=== PATIENT | male | born 1965 | race Caucasian/White ===

== ENCOUNTER 2019-09-02 07:50 | Emergency (ER) | payer OTHER, SELFPAY ==
[2019-09-02] VITALS (19 sets, daily range): BP systolic 133–188; BP diastolic 60–125; PULSE 62–101; RESP 13–27; TEMP 36.3–36.6; O2SAT 65–100
--- NOTE | ~2019-09-02 | XR_ITS ---
EXAMINATION: XR chest 1V portable DATE: 09/02/2019 08:42 INDICATION: Mid chest pain. TECHNIQUE: A single frontal view of the chest was obtained. COMPARISON: None. FINDINGS: The chest demonstrates clear lungs without pneumonia, pleural effusion, or pneumothorax. Th e heart size is normal. Electronic devices overlie the chest bilaterally with wires coursing to the n sophie. IMPRESSION: 1. No acute cardiopulmonary disease. Reviewed, dictated and finalized at location A.
--- NOTE | ~2019-09-02 | US_ITS ---
EXAMINATION: US right upper quadrant DATE: 09/02/2019 09:20 INDICATION: Right upper quadrant abdominal pain. TECHNIQUE: Multiple grayscale and Doppler ultrasound images of the abdomen were obtained. COMPARISON: None FINDINGS: The visualized portions of the head of the pancreas are normal. The liver is normal without focal lesion. There is normal flow in main portal vein. The gallbladder is normal in size and contai ns sludge. No gallstones or gallbladder wall thickening. There was no sonographic Mcgrath sign. The co mmon duct is normal and measures 5 mm. IMPRESSION: 1. Gallbladder sludge. No evidence of acute cholecystitis. Reviewed, dictated and finalized at location A.
--- NOTE | 2019-09-02 07:57 | ED.CHESTPAIN ---
HPI - Chest Pain General Chief Complaint: Chest Pain Stated Complaint: REAL INTENSE CP Time Seen by Provider: 09/02/19 07:55 History of Present Illness HPI narrative: Severe central chest pain for the past couple of hours. Associated with SOB and nausea. He hints at the fact that he has had this pain many times before, but he will no say it directly. 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 Related Data Home Medications Medication Instructions Recorded Confirmed clonazepam [Klonopin] 2 mg PO BID 03/01/19 03/01/19 divalproex 1,500 mg PO HS 03/01/19 03/01/19 divalproex [Depakote] 500 mg PO DAILY 03/01/19 03/01/19 lithium carbonate 03/01/19 03/01/19 Allergies Allergy/AdvReac Type Severity Reaction Status Date / Time No Known Allergies Allergy Verified 09/02/19 08:02 Review of Systems Review of Systems: All systems reviewed & are unremarkable except as noted in HPI and below Constitutional: Constitutional: Reports weakness Cardiovascular: Cardiovascular: Reports chest pain Respiratory: Respiratory: Reports dyspnea Gastrointestinal: Gastrointestinal: Reports nausea Neurologic: Reports dizziness and Reports weakness Psychiatric: Psychiatric: Reports anxiety and Reports depression Endocrine: Endocrine: Denies polydipsia and Denies polyuria PMFSH Past Medical History Medical History Anxiety Depression Surgical History Surgical History S/P deep brain stimulator placement Social History Social History Gender identity (if verbalized by the patient): Male Exam Const: General: healthy appearing and no acute distress Nutritional Appearance: well nourished Orientation/consciousness: patient oriented x3 HENMT: Head: normal to inspection Resp: Effort & Inspection: normal respiratory effort Auscultation: clear to auscultation bilaterally Cardio: Rate: regular rate Rhythm: regular rhythm GI: Inspection: non-distended Other: mild epigastric tenderness Skin: General skin exam: normal color Neuro: General: patient oriented x3, moves all extremities and CN's II-XI intact bilaterally Speech: Abnormal speech present slurred and stuttering Other: Mild tremor Extrem: General: no edema Psych: Affect: Anxious affect present Course Vital Signs Vital signs: Vital Signs Temperature 36.6 C 09/02/19 07:54 Pulse Rate 69 09/02/19 07:54 Respiratory Rate 18 09/02/19 07:54 Blood Pressure 185/83 H 09/02/19 07:54 Pulse Oximetry 99 09/02/19 07:54 Temperature 36.3 C L 09/02/19 12:58 Pulse Rate 83 09/02/19 12:58 Respiratory Rate 16 09/02/19 12:58 Blood Pressure 175/61 H 09/02/19 12:58 Pulse Oximetry 100 09/02/19 12:58 MDM - Chest Pain MDM Narrative Medical decision making narrative: Pain is not typical for cardiac pain. In addition to this on multiple occasions he has been noted to be sleeping, but when questioned about ongoing pain he states that its a 10. This amkes me believe that there is either a psychological component or he has some secondary gain. Differential Diagnosis Differential diagnosis: Likely atypical chest pain and other (biliary colic) Medical Records Data Attestation: I reviewed the patient's medical records. Lab Data Attestation: I reviewed the patient's lab results. Result diagrams: 09/02/19 08:17 09/02/19 08:17 Labs: Lab Results 09/02/19 09/02/19 09/02/19 Range/Units 08:17 08:17 08:17 WBC 11.7 H (4.5-10.0) K/mm3 RBC 4.37 L (4.6-6.20) M/mm3 Hgb 13.6 L (14.0-18.0) g/dL Hct 41.4 L (42.0-52.0) % MCV 94.7 (80-100) fl MCH 31.1 (26-34) pg MCHC 32.9 (32-36) g/dl RDW 11.4 L (11.5-14.5) % Plt Count 229 (150-37
--- NOTE | 2019-09-02 08:03 | ECG_ITS ---
Measurements Intervals Kemp Rate: 72 P: 86 WY: 161 QRS: 202 QRSD: 82 T: 189 QT: 407 QTc: 447 Interpretive Statements SINUS RHYTHM WITH SINUS ARRHYTHMIA ATRIAL PREMATURE COMPLEX EARLY PRECORDIAL R/S TRANSITION BORDERLINE ST-T WAVE ABNORMALITY- ANTEROLATERAL LEADS BASELINE ARTIFACT- I, II, III, AVR, AVL, AVF, V1-V6 BORDERLINE ECG Electronically Signed On 09-02-2019 15:00:45 CDT by Rell Mercado D.O.
[2019-09-02 08:25] LABS: Basophils Absolute Auto 0.1 K/mm3 (0.0-0.1); Basophils Percent Auto 0.4 % (0.2-1.2); Eosinophils Absolute Auto 0.2 K/mm3 (0-0.3); Eosinophils Percent Auto 1.9 % (0-4.4); Hematocrit 41.4 % (42.0-52.0); Hemoglobin 13.6 g/dL (14.0-18.0); Immature Granulocyte Absolute 0.03 K/mm3 (0.00-0.031); Immature Granulocyte Percent A 0.3 % (0-0.5); Lymphocytes Absolute Auto 2.93 K/mm3 (0.9-3.2); Mean Corpuscular HGB Conc 32.9 g/dl (32-36); Mean Corpuscular Hemoglobin 31.1 pg (26-34); Mean Corpuscular Volume 94.7 fl (80-100); Monocytes Absolute Auto 1.2 K/mm3 (0.1-0.6); Monocytes Percent Auto 9.9 % (2.6-8.5); Neutrophils Absolute Auto 7.3 K/mm3 (1.3-6.7); Neutrophils Percent Auto 62.5 % (45.5-73.1); Platelet Count Result 229 k/mm3 (150-375); Red Blood Count 4.37 M/mm3 (4.6-6.20); Red Cell Distribution Width 11.4 % (11.5-14.5); White Blood Count 11.7 K/mm3 (4.5-10.0)
[2019-09-02 08:34] LABS: Alanine Aminotransferase 31 U/L (4-50); Albumin Level 4.5 g/dL (3.5-5.1); Alkaline Phosphatase 59 U/L (38-126); Aspartate Amino Transferase 52 U/L (17-59); Bilirubin,Total 0.4 mg/dL (0.2-1.3); Blood Urea Nitrogen 25 mg/dL (9-20); Calcium 9.4 mg/dL (8.4-10.2); Carbon Dioxide 30 mmol/L (22-30); Chloride 105 mmol/L (98-107); Estimated CRCL calculation 85 ml/min; Estimated Glomerular Filt Rate > 60; Glucose 129 mg/dL (75-110); Lipase 126 U/L (23-300); Potassium 4.1 mmol/L (3.4-5.0); Sodium 140 mmol/L (137-145)
[2019-09-02 08:46] LABS: Troponin I < 0.012 ng/mL (0.000-0.034)
[2019-09-02 08:53] LABS: Prothrombin Time 12.6 Seconds (11.1-14.7)
[2019-09-02 09:01] LABS: Partial Thromboplastin Time 23.6 SECONDS (22.3-36.8)
--- NOTE | 2019-09-02 11:10 | PC.NURSE ---
Report to GEOFF Day, to continue care.
[2019-09-02 11:48] LABS: Troponin I < 0.012 ng/mL (0.000-0.034)
[2019-09-02] MEDS: BELLADONNA ALK/PHENOB ELIX 10 ML, MAG HYDROX/ALUMINUM HYD/SIMETH 30 ML, LIDOCAINE HCL 2... PO (12:56)
--- NOTE | 2019-09-02 13:14 | PC.NURSE ---
Pt notes gastric relief after drinking GI coctail
== END 2019-09-02 13:37 | disposition home or self-care (01) ==
PROVIDERS: Emergency Provider Emergency Medicine; PCP Family Medicine
DX: R07.89 Other chest pain (principal); F41.9 Anxiety disorder, unspecified; F32.9 Major depressive disorder, single episode, unspecified; R93.2 Abnormal findings on diagnostic imaging of liver and biliary tract; I49.1 Atrial premature depolarization; R94.31 Abnormal electrocardiogram [ECG] [EKG]
CPT/HCPCS: 36415; 71045; 76705; 80053; 83690; 84484; 85025; 85610; 85730; 93005; 99284; A9270

== ENCOUNTER 2019-09-13 06:07 | Emergency (ER) | payer OTHER, SELFPAY ==
[2019-09-13] VITALS (12 sets, daily range): BP systolic 97–164; BP diastolic 58–105; PULSE 77; RESP 18; TEMP 36.6; O2SAT 92–100
--- NOTE | ~2019-09-13 | XR_ITS ---
EXAMINATION: XR chest 1V portable DATE: 09/13/2019 07:54 INDICATION: Cough. COVID-19 exposure. TECHNIQUE: A single frontal view of the chest was obtained. COMPARISON: Chest single view 09/02/2019 FINDINGS: The chest demonstrates clear lungs without pneumonia, pleural effusion, or pneumothorax. Th e heart size is normal. Electronic devices overlie the chest bilaterally with wires coursing to the n sophie. IMPRESSION: 1. No acute cardiopulmonary disease. Reviewed, dictated and finalized at location A.
--- NOTE | 2019-09-13 06:15 | PC.NURSE ---
While triaging patient, he stated Can't you just swab me and let me go? referring to Covid testing. Explained to patient that swab and go testing is done at clinics when permitted and that because he presented to the emergency room he must be evaluated by a physician in order to have orders placed. Patient verbalized understanding.
--- NOTE | 2019-09-13 07:11 | ED.FEVER ---
HPI - Fever General Chief Complaint: Fever Stated Complaint: hot sweats, GUILLAUME, cough Time Seen by Provider: 09/13/19 07:02 History of Present Illness HPI Narrative: Patient presents from home with 3 days of elevated temperature and fever last night. His voice is very muffled and his sentence structure is difficult to understand, but last night he said his temperature was over 100. He has muscle aches throughout his body, epigastric pain, constipation, and a cough. He has a history of brain stimulators, with bilateral upper chest implants. He is on multiple psychiatric drugs. He denies smoking drinking and drugs. MD elicited complaint: fever Onset (ago): day(s) Exacerbating factors: nothing Relieving factors: nothing Associated symptoms: myalgias, cough and shortness of breath Treatments prior to arrival fever: none Related Data Home Medications Medication Instructions Recorded Confirmed clonazepam [Klonopin] 2 mg PO BID 03/01/19 03/01/19 divalproex 1,500 mg PO HS 03/01/19 03/01/19 divalproex [Depakote] 500 mg PO DAILY 03/01/19 03/01/19 lithium carbonate 03/01/19 03/01/19 Allergies Allergy/AdvReac Type Severity Reaction Status Date / Time No Known Allergies Allergy Verified 09/02/19 08:02 Review of Systems Review of Systems: Narrative: CONSTITUTIONAL: He has had fever, but not chills, or sweats. EYES: Denies visual changes, redness, or discharge. ENT: Denies rhinorrhea, congestion, sore throat, or otalgia. CARDIOVASCULAR: Denies chest pain, palpitations, or edema. RESPIRATORY: He has cough and dyspnea. GASTROINTESTINAL: He has abdominal pain, but not nausea, vomiting, or diarrhea. GENITOURINARY: Denies dysuria or hematuria. SKIN: Denies rash or itching. MUSCULOSKELETAL: He has myalgia. NEUROLOGIC: Denies headache, numbness, or weakness. PSYCHIATRIC: Denies anxiety or depression. All systems reviewed & are unremarkable except as noted in HPI and below PMFSH Past Medical History Medical History Anxiety Depression Surgical History Surgical History S/P deep brain stimulator placement Social History Social History (Updated 09/13/19 @ 07:15 by Myriam Baltazar MD) Smoking status: Never smoker Alcohol intake: never Substance use: never Gender identity (if verbalized by the patient): Male Exam Narrative: Exam Narrative: GENERAL: Well-appearing, well-nourished, and in no acute distress. HEAD: Normocephalic, atraumatic. He has bilateral circular scars on the top of his head. EYES: PERRLA and EOMI. ENT: Nares clear, no rhinorrhea or epistaxis. Mucous membranes moist. NECK: Supple. CHEST: Clear to auscultation. No respiratory distress. Upper chest test has 2 stimulators. HEART: Regular rate and rhythm. No murmur heard. Normal peripheral pulses. ABDOMEN: Soft, nontender, nondistended, normal active bowel sounds. EXTREMITIES: Normal range of motion. No edema. SKIN: Warm, dry, no rash. NEURO: No focal deficits. Alert and oriented x3. PSYCH: Flat affect. Course Reevaluation(s) Reevaluation #1: Went in to tell the patient that all of his test came back normal and that he could be discharged home. He said he was on the phone with his primary care physician trying to get a COVID test elsewhere. Date: 09/13/19 Time: 10:04 Vital Signs Vital signs: Vital Signs Temperature 97.9 F 09/13/19 06:12 Pulse Rate 77 09/13/19 06:12 Respiratory Rate 18 09/13/19 06:12 Blood Pressure 164/78 H 09/13/19 06:12 Pulse Oximetry 100 09/13/19 06:12 Temperature 97.9 F 09/13/19 06:12 Pulse Rate 77 09/13/19 06:12 Respiratory Rate 18 09/13/19 06:12 Blood Pressure 129/73 09/13/19 09:30 Pulse Oximetry 99 09/13/19 09:31 MDM - Fever MDM Narrative Medical decision making narrative: There is no obvious cause to his fever will do a medical work-up to look for anything that might point to one
[2019-09-13] MEDS: SODIUM CHLORIDE 0.9% IV 1,000 ML 999 ML IV CONT ×2 (07:30→08:33)
--- NOTE | 2019-09-13 07:32 | PC.NURSE ---
assuming care of pt from Karen TELLEZ. Pt is A&Ox4. Pt states he still has cough even with use of cough drops. Pt laying in bed texting. Pt has not coughed in nurse presence. Pt appears in NAD. Pt has call light in reach. Pt aware of POC.
[2019-09-13 07:56] LABS: Hematocrit 41.9 % (42.0-52.0); Hemoglobin 13.3 g/dL (14.0-18.0); Mean Corpuscular HGB Conc 31.7 g/dl (32-36); Mean Corpuscular Hemoglobin 30.5 pg (26-34); Mean Corpuscular Volume 96.1 fl (80-100); Platelet Count Result 229 k/mm3 (150-375); Red Blood Count 4.36 M/mm3 (4.6-6.20); Red Cell Distribution Width 11.8 % (11.5-14.5); White Blood Count 7.2 K/mm3 (4.5-10.0)
[2019-09-13 07:57] LABS: Lactic Acid Reflex 0.6 mmol/L (0.7-2.1)
[2019-09-13 08:00] LABS: Creatine Kinase 109 U/L (55-170)
[2019-09-13 08:01] LABS: Alanine Aminotransferase 34 U/L (4-50); Albumin Level 4.3 g/dL (3.5-5.1); Alkaline Phosphatase 54 U/L (38-126); Aspartate Amino Transferase 25 U/L (17-59); Bilirubin,Total 0.3 mg/dL (0.2-1.3); Blood Urea Nitrogen 17 mg/dL (9-20); CRP 1.7 mg/dL (<1.0); Calcium 8.9 mg/dL (8.4-10.2); Carbon Dioxide 32 mmol/L (22-30); Chloride 102 mmol/L (98-107); Estimated CRCL calculation 76 ml/min; Estimated Glomerular Filt Rate > 60; Glucose 105 mg/dL (75-110); Potassium 4.6 mmol/L (3.4-5.0); Sodium 137 mmol/L (137-145)
[2019-09-13 08:09] LABS: Lymphocytes Absolute Manual 2.59 K/mm3 (1.1-4.5); Monocytes Percent Manual 7 % (3-9); Neutrophils Percent Manual 57 % (46-73); Platelet Estimate Adequate (Adequate); Total Cells Counted 100
[2019-09-13 08:14] LABS: Prothrombin Time 13.3 Seconds (11.1-14.7)
[2019-09-13 08:15] LABS: Partial Thromboplastin Time 30.4 SECONDS (22.3-36.8)
[2019-09-13 08:16] LABS: Lithium 0.3 mmol/L (0.6-1.2)
[2019-09-13 09:36] LABS: Add Urine Microscopic? NO; Appearance Urine Clear (Clear); Bilirubin Urine Negative (Negative); Blood Urine Negative (Negative); Color Urine Straw (Yellow); Glucose Urine UA Negative (Negative); Ketones Urine Negative (Negative); Leukocyte Esterase Ur Negative LEU/UL (Negative); Nitrate Urine Negative (Negative); Protein Urine Negative (Negative); Urobilinogen Urine Negative mg/dL (<2.0)
== END 2019-09-13 10:20 | disposition home or self-care (01) ==
PROVIDERS: Emergency Provider Emergency Medicine; PCP Family Medicine
DX: R50.9 Fever, unspecified (principal); F41.9 Anxiety disorder, unspecified; F32.9 Major depressive disorder, single episode, unspecified
CPT/HCPCS: 36415; 71045; 80053; 80178; 81003; 82550; 83605; 85025; 85610; 85730; 86140; 87040; 96360; 99283; J7030

== ENCOUNTER 2021-01-10 09:56 | Emergency (ER) | payer OTHER, SELFPAY ==
--- NOTE | ~2021-01-10 | CT_ITS ---
EXAMINATION: CT brain wo con DATE: 01/10/2021 10:55 INDICATION: Head injury from fall TECHNIQUE: Computed tomography (CT) of the head was performed without intravenous contrast. The mA wa s adjusted according to patient size. Iterative reconstruction technique was employed. Exam dose: 60 5.33 mGy-cm total exam DLP. COMPARISON: None FINDINGS: There are bilateral deep brain neurostimulator devices. No intracranial mass lesion or hemorrhage or cerebrovascular accident is evident. No midline shift or mass effect. There is moderate cerebral and cerebellar volume loss. Ventricular size is within normal limits. No subdural or epidural hematoma. No orbital mass lesion. Polyp or mucous retention cyst along the posterior medial upper left maxillary sinus and posterior le ft sphenoid sinus. Included paranasal sinuses and the mastoid air cells are otherwise unremarkable. No skull fracture or bone destruction. IMPRESSION: No skull fracture or acute intracranial finding Bilateral deep brain neurostimulator devices Reviewed, dictated and finalized at Location A. Reviewed, dictated and finalized at location B.
--- NOTE | ~2021-01-10 | CT_ITS ---
EXAMINATION: CT facial & cervical spine wo EXAM DATE: 01/10/2021 10:55 INDICATION: head injury. TECHNIQUE: Spiral CT of the facial bones was acquired in the axial plane. Coronal reformatted images were also reviewed. Spiral CT of the cervical spine was performed without contrast. Axial images we re reviewed. Coronal and sagittal reformatted images were also reviewed. The dose-length product (DL P) for this examination was 605.33 mGy-cm. The exposure was tailored according to patient size, and iterative reconstruction (ASIR) was used as additional dose reduction technique. There is no prior s tudy for comparison. FINDINGS: Deep brain stimulators. FACIAL CT: There are no displaced acute nasal bone fractures. The mandible, sinuses and orbits are i ntact. Mild to moderate leftward nasal septal deviation. The orbits, globes and extraocular muscles a re unremarkable. Mild mucoperiosteal thickening, small retention cysts or polyps. No air-fluid leve ls within the sinuses. There is frontal scalp contusion, probable laceration. CERVICAL CT: There is no evidence of acute cervical fracture. The odontoid process is intact. Pre-d ens space is normal. Prevertebral soft tissue is normal. There are no soft tissue abnormalities immanuel ntified. There is no disc space widening or traumatic vertebral body subluxation suspected. There i s moderate cervical disc disease and mild to moderate arthropathy. A detailed level by level evaluat ion of spondylosis can be added as addendum if requested. IMPRESSION: 1. No acute facial or cervical fracture. 2. Frontal scalp contusion, laceration. Reviewed, dictated and finalized at location A.
[2021-01-10 10:05] VITALS: BP 181/72; PULSE 80; RESP 16; TEMP 36.6; O2SAT 100
--- NOTE | 2021-01-10 10:38 | ED.FALL ---
HPI - Fall General Chief Complaint: Fall Stated Complaint: fall, head injury Time Seen by Provider: 01/10/21 10:16 Source: patient Mode of arrival: ambulatory Limitations: no limitations History of Present Illness HPI Narrative: This is a 55 year old male that presents to the ER for a head injury sustained just prior to arrival. Reports he tripped and fell taking out the trash. Reports hitting his head on the ground. Reports a laceration to the forehead. He is unsure of his last tetanus vaccine. Also reports an injury to the nose. Denies chest pain, back pain, vision changes, vomiting, numbness or weakness. Related Data Home Medications Medication Instructions Recorded Confirmed clonazepam 01/10/21 01/10/21 diazepam 01/10/21 divalproex PO 01/10/21 lithium carbonate mg 01/10/21 Allergies Allergy/AdvReac Type Severity Reaction Status Date / Time No Known Allergies Allergy Verified 09/02/19 08:02 Review of Systems Review of Systems: CONSTITUTIONAL: Denies fever EYES: Denies visual changes CARDIOVASCULAR: Denies chest pain GASTROINTESTINAL: Denies vomiting SKIN: Reports laceration MUSCULOSKELETAL: Denies back pain, joint pain, or myalgia. NEUROLOGIC: Denies headache, numbness, or weakness. All systems reviewed & are unremarkable except as noted in HPI and below PMFSH Past Medical History Medical History (Updated 01/10/21 @ 12:16 by Rosario Benavides PA-C) Anxiety Depression Surgical History Surgical History S/P deep brain stimulator placement Social History Social History (Updated 09/13/19 @ 07:15 by Myriam Baltazar MD) Smoking status: Never smoker Alcohol intake: never Substance use: never Gender identity (if verbalized by the patient): Male Exam Narrative: GENERAL: Well-appearing, well-nourished, and in no acute distress. HEAD: Normocephalic. 3cm irregular laceration into subcutaneous tissue to the forehead EYES: PERRLA and EOMI. ENT: Nares clear, no rhinorrhea or epistaxis. Mucous membranes moist. Oropharynx without tonsillar hypertrophy exudate or other lesions. Bilateral TMs pearly carbone non-bulging NECK: Supple. No adenopathy or masses. CHEST: Clear to auscultation. No respiratory distress. No wheezes rales or rhonchi HEART: Regular rate and rhythm. No murmur heard. Normal peripheral pulses. ABDOMEN: Soft, nontender BACK: No midline thoracic or lumbar spine tenderness EXTREMITIES: Normal range of motion. No edema or obvious deformity. SKIN: Warm, dry, no rash. NEURO: No focal deficits. Alert and oriented x3. Cranial nerves II through XII grossly intact PSYCH: Normal mood and affect Course Vital Signs Vital signs: Vital Signs Temperature 97.9 F 01/10/21 10:05 Pulse Rate 80 01/10/21 10:05 Respiratory Rate 16 01/10/21 10:05 Blood Pressure 181/72 H 01/10/21 10:05 Pulse Oximetry 100 01/10/21 10:05 Temperature 97.9 F 01/10/21 10:05 Pulse Rate 80 01/10/21 10:05 Respiratory Rate 16 01/10/21 10:05 Blood Pressure 181/72 H 01/10/21 10:05 Pulse Oximetry 100 01/10/21 10:05 Procedures Laceration Laceration 1: Date: 01/10/21 Time: 12:11 Site: face Size (cm): 3 Description: irregular Depth: simple, single layer Local Anesthetic: lidocaine 1% and with epi Amount of anesthesia used (mL): 2 Pre-repair: irrigated ====== Skin Level ====== Skin layer closed with: nylon Size (cm): 5-0 Number of sutures: 6 Technique: simple, interrupted ====== Subcutaneous Layer ====== ====== Muscle Layer ====== ====== Tendon Layer ====== MDM - Fall MDM Narrative Medical decision making narrative: Patient presents to the emergency department after a ground-level fall today with head injury. He is neurologically intact. CT scan of the brain is without acute findings. CT scan of the cervical spine and facial joseph
[2021-01-10] MEDS: TETANUS,DIPHTHERIA,AC PERTUSSIS ADULT (0.5 ML) BOOSTRIX IM (11:01)
[2021-01-10 13:05] VITALS: BP 156/80; PULSE 79; RESP 18; O2SAT 98
== END 2021-01-10 12:45 | disposition home or self-care (01) ==
PROVIDERS: Emergency Provider Emergency Medicine; PCP Family Medicine
DX: S01.81XA Laceration without foreign body of other part of head, initial encounter (principal); Z23 Encounter for immunization; F41.9 Anxiety disorder, unspecified; F32.A Depression, unspecified; Z96.82 Presence of neurostimulator; W01.0XXA Fall on same level from slipping, tripping and stumbling without subsequent striking against object, initial encounter
CPT/HCPCS: 12013; 70450; 70486; 72125; 90471; 90715; 99284

== ENCOUNTER 2021-01-15 08:24 | Emergency (ER) | payer OTHER, SELFPAY ==
[2021-01-15 08:34] VITALS: BP 106/69; PULSE 76; RESP 18; TEMP 35.7; O2SAT 100
--- NOTE | 2021-01-15 08:40 | ED.WOUNDLAC ---
HPI - Wound/Laceration General Chief Complaint: Wound/Laceration Stated Complaint: Suture Removal Time Seen by Provider: 01/15/21 08:40 Source: patient, RN notes reviewed and old records reviewed (ER note 11/10/20) Mode of arrival: ambulatory Limitations: no limitations History of Present Illness HPI narrative: 55-year-old male presents to the [facility] for suture removal. Had been seen on 11/10, 5 days ago after a fall. Sutures have been placed. Was told to follow-up in 3 to 5 days for suture removal. Onset (ago): day(s) (5) Related Data Home Medications Medication Instructions Recorded Confirmed clonazepam 01/10/21 01/10/21 diazepam 01/10/21 divalproex PO 01/10/21 lithium carbonate mg 01/10/21 Allergies Allergy/AdvReac Type Severity Reaction Status Date / Time No Known Allergies Allergy Verified 09/02/19 08:02 Review of Systems Review of Systems: All systems reviewed & are unremarkable except as noted in HPI and below Eyes: Eyes: Reports no additional eye complaints ENT: Reports system reviewed and no additional complaints, except as documented Cardiovascular: Cardiovascular: Reports no additional cardiovascular complaints Respiratory: Respiratory: Reports no additional respiratory complaints Gastrointestinal: Gastrointestinal: Reports no additional gastrointestinal complaints Musculoskeletal: Musculoskeletal: Reports no additional musculoskeletal complaints Integumentary/Breasts: Skin/Breast: Reports as per HPI Comments: Suture removal Neurologic: Reports system reviewed and no additional complaints, except as documented Psychiatric: Psychiatric: Reports no additional psychiatric complaints Allergic/Immunologic: Allergic/Immunologic: Reports no additional allergic/immunologic complaints PMFSH Past Medical History Medical History (Updated 01/15/21 @ 08:44 by Leanne Denson) Anxiety Depression Surgical History Surgical History S/P deep brain stimulator placement Social History Social History Smoking status: Never smoker Alcohol intake: never Substance use: never Gender identity (if verbalized by the patient): Male Comments At the time of my signature, I reviewed and agree with the nursing past medical, surgical, social, and family history. There is no relevant family history pertinent to the patient complaint. Exam Const: General: healthy appearing, no acute distress and alert Nutritional Appearance: well nourished Orientation/consciousness: patient oriented x3 Limitations: no limitations HENMT: Head: normal to inspection Eyes: Pupils: Equal, round and reactive pupils present Neck: Neck: normal visual inspection and no lymphadenopathy Chest: Chest palpation & inspection: normal inspection of the chest Resp: Effort & Inspection: normal respiratory effort Auscultation: clear to auscultation bilaterally Cardio: Rate: regular rate Rhythm: regular rhythm Skin: Other: 5 sutures noted with significant amount of granulation tissue over the sutures. Was placed 5 days ago in the ER after falling. Neuro: General: patient oriented x3, moves all extremities, no meningeal signs and no focal motor deficits Speech: normal speech Gait exam (Neuro): Normal gait present Extrem: General: normal to inspection Psych: Appearance: grossly normal and well kempt Mental Status: mental status grossly normal Affect: normal affect Attitude: cooperative Thought content: Yes Normal thought content present Course Course Emergency Course: Discharge instructions reviewed with patient, as well as provided in writing per nursing staff. The instructions also include specific and strict return/GO TO THE ER as well as f/u information. All questions have been answered, and the patient deny any further questions with discharge and discharge plan. Area cleaned with Betadine, chlorhexidine. Flores
== END 2021-01-15 09:04 | disposition home or self-care (01) ==
PROVIDERS: Emergency Provider Nurse Practitioner
DX: Z48.02 Encounter for removal of sutures (principal); F41.9 Anxiety disorder, unspecified
CPT/HCPCS: 99211; G0463

== ENCOUNTER 2021-11-14 11:16 | Emergency (ER) | payer BC, SELFPAY ==
[2021-11-14 11:29] VITALS: BP 136/74; PULSE 80; RESP 18; TEMP 35.7; O2SAT 99
--- NOTE | 2021-11-14 11:46 | ED.MALEGU ---
HPI - Male Genitourinary General Chief complaint: Urogenital-Male Stated complaint: uti Time Seen by Provider: 11/14/21 11:47 Source: patient and RN notes reviewed Mode of arrival: ambulatory Limitations: no limitations History of Present Illness HPI Narrative: 56-year-old male with history of bipolar disorder presents with his caregiver with concern for nocturia. His caregiver reports over the last several nights he has had bedwetting, which is unusual for him. He reports he has had some medication changes recently which have made him more drowsy, unsteady on his feet. Patient denies any dysuria, frequency, urgency, nausea, vomiting, back pain, abdominal pain. Caregiver denies fever. MD Complaint: other (Nocturia) Related Data Home Medications Medication Instructions Recorded Confirmed clozapine 100 mg tablet mg 11/14/21 clozapine 25 mg tablet mg 11/14/21 divalproex 500 mg tablet,extended mg PO 11/14/21 release 24 hr lithium carbonate 450 mg mg PO 11/14/21 tablet,extended release metoprolol tartrate 25 mg tablet mg 11/14/21 valproic acid (as sodium salt) 250 mg 11/14/21 mg/5 mL oral solution Allergies Allergy/AdvReac Type Severity Reaction Status Date / Time No Known Allergies Allergy Verified 11/14/21 11:29 Review of Systems Review of Systems: CONSTITUTIONAL: Denies malaise, chills, sweats, or fever. CARDIOVASCULAR: Denies chest pain, palpitations, or edema. RESPIRATORY: Denies cough or dyspnea. GASTROINTESTINAL: Denies abdominal pain, nausea, vomiting, diarrhea GENITOURINARY: Denies dysuria, frequency, urgency, suprapubic pressure. Denies flank pain or hematuria. Reports nocturia SKIN: Denies rash or itching. MUSCULOSKELETAL: Denies back pain or myalgia. All systems reviewed & are unremarkable except as noted in HPI and below PMFSH Past Medical History Medical History (Updated 11/14/21 @ 11:55 by Leanne Hamilton NP) Anxiety Chronic pain Depression Dizziness SOB (shortness of breath) Tardive dystonia Surgical History Surgical History S/P deep brain stimulator placement Social History Social History Smoking status: Never smoker Alcohol intake: never Substance use: never Gender identity (if verbalized by the patient): Male Comments At time of signature, agree with nursing past medical, surgical, social and family history. There is no relevant family history pertinent to the presenting complaint Exam Narrative: GENERAL: Well-appearing, well-nourished, and in no acute distress. HEAD: Normocephalic. EYES: PERRLA, conjunctivae clear. NECK: Supple. No lymphadenopathy CHEST: Clear to auscultation. No respiratory distress. HEART: Regular rate and rhythm. ABDOMEN: Soft, nontender upon palpation, nondistended, normal active bowel sounds, no palpable or pulsatile masses, no guarding. No CVA tenderness SKIN: Warm, dry, no rash. NEURO: Alert and oriented x3. PSYCH: Normal mood and affect Course Course Emergency Course: Patient is aware of diagnosis, understands and agrees to treatment plan. Anticipatory guidance given. Patient agrees to follow-up as directed and is aware of reasons to seek care at the emergency department. Portions of this record may have been created with voice recognition software Level of Care: Express Care Visit Vital Signs Vital signs: Vital Signs Temperature 96.3 F L 11/14/21 11:29 Pulse Rate 80 11/14/21 11:29 Respiratory Rate 18 11/14/21 11:29 Blood Pressure 136/74 11/14/21 11:29 Pulse Oximetry 99 11/14/21 11:29 Oxygen Delivery Room Air 11/14/21 11:29 Temperature 96.3 F L 11/14/21 11:29 Pulse Rate 80 11/14/21 11:29 Respiratory Rate 18 11/14/21 11:29 Blood Pressure 136/74 11/14/21 11:29 Pulse Oximetry 99 11/14/21 11:29 Oxygen Delivery Room Air 11/14/21 11:29 Reviewed. MDM - Male Genit
== END 2021-11-14 11:57 | disposition home or self-care (01) ==
PROVIDERS: Emergency Provider Nurse Practitioner
DX: R35.1 Nocturia (principal)
CPT/HCPCS: 81003; 87086; 87088; 99213; G0463

== ENCOUNTER 2022-09-14 23:21 | Emergency (ER) | payer BC, SELFPAY ==
--- NOTE | ~2022-09-14 | CT_ITS ---
EXAMINATION: CT brain wo con DATE: 09/15/2022 02:21 INDICATION: Fall. Right ear laceration. TECHNIQUE: Computed tomography (CT) of the head was performed without intravenous contrast. The mA wa s adjusted according to patient size. Iterative reconstruction technique was employed. Exam dose: 68 1.00 mGy-cm total exam DLP. COMPARISON: 01/10/2021 CT brain FINDINGS: Again noted are bilateral deep brain neurostimulator devices. Moderate cerebral and cerebellar volume loss. No intracranial mass lesion or hemorrhage or cerebrovascular accident is detected. No midline shift o r mass effect. No subdural or epidural hematoma is detected. A 2 mm circular radiopaque metallic densities noted in the left earlobe. No cephalohematoma or skull fracture is detected. Focal areas of mild mucosal periosteal thickening or mucous retention cyst are noted in the maxillary sinuses, left sphenoid sinus. The mastoid air cells and included paranasal sinuses are otherwise unr emarkable. IMPRESSION: No skull fracture or acute intracranial finding Bilateral deep neurostimulator devices Reviewed, dictated and finalized at [facility] Reviewed, dictated and finalized at [facility].
[2022-09-15 00:06] VITALS: BP 166/70; PULSE 93; RESP 18; TEMP 36.9; O2SAT 98
--- NOTE | 2022-09-15 02:22 | ED.GENADULT ---
HPI - General Adult General Chief complaint: Fall <SUSHILA Jackson Last Filed: 09/15/22 03:19> Stated complaint: fall, R ear/head injury <SUSHILA Jackson Last Filed: 09/15/22 03:19> Time Seen by Provider: 09/15/22 01:52 <SUSHILA Jackson Last Filed: 09/15/22 03:19> Source: patient <SUSHILA Jackson Last Filed: 09/15/22 03:19> Mode of arrival: ambulatory <SUSHILA Jackson Last Filed: 09/15/22 03:19> Limitations: no limitations <SUSHILA Jackson Last Filed: 09/15/22 03:19> History of Present Illness HPI narrative: This is a 57-year-old male with PMH of tardive dystonia who presents to the ED with chief complaint of a fall that occurred just prior to arrival. Patient states that he was walking outside and going to sit on his swinging chair when the fall took place. States he sat on the edge of the chair and swung out from under him and he fell onto the rocks below. He states that the chair then swung back and hit him in the head while he was on the ground. Denies any LOC. He is not taking blood thinners. Reports a laceration to the posterior right ear. Denies any headache, vision changes, neurologic symptoms, further site of pain or injury. Surgical history of deep brain stimulator placement due to the dystonia. <SUSHILA Jackson Last Filed: 09/15/22 03:19> Related Data Home medications: Home Medications Medication Instructions Recorded Confirmed clozapine 100 mg tablet mg 11/14/21 clozapine 25 mg tablet mg 11/14/21 divalproex 500 mg tablet,extended mg PO 11/14/21 release 24 hr lithium carbonate 450 mg mg PO 11/14/21 tablet,extended release metoprolol tartrate 25 mg tablet mg 11/14/21 valproic acid (as sodium salt) 250 mg 11/14/21 mg/5 mL oral solution <SUSHILA Jackson Last Filed: 09/15/22 03:19> Allergies/adverse reactions: Allergies Allergy/AdvReac Type Severity Reaction Status Date / Time No Known Allergies Allergy Verified 11/14/21 11:29 <Chai Aguilera PA-C - Last Filed: 09/15/22 03:19> Review of Systems Review of Systems: CONSTITUTIONAL: Denies fever, chills, or sweats. EYES: Denies visual changes, redness, or discharge. ENT: Denies rhinorrhea, congestion, sore throat, or otalgia. CARDIOVASCULAR: Denies chest pain, palpitations, or edema. RESPIRATORY: Denies cough or dyspnea. GASTROINTESTINAL: Denies abdominal pain, nausea, vomiting, or diarrhea. GENITOURINARY: Denies dysuria or hematuria. SKIN: See HPI MUSCULOSKELETAL: Denies back pain, joint pain, or myalgia. NEUROLOGIC: Denies headache, numbness, dizziness, or weakness. PSYCHIATRIC: Denies anxiety or depression. <Chai Aguilera PA-C - Last Filed: 09/15/22 03:19> PMFSH Past Medical History Medical History: Medical History (Updated 09/16/22 @ 00:00 by [facility]) Anxiety Chronic pain Depression Dizziness SOB (shortness of breath) Tardive dystonia <SUSHILA Jackson Last Filed: 09/15/22 03:19> Surgical History Surgical History: Surgical History S/P deep brain stimulator placement <Chai Aguilera PA-C - Last Filed: 09/15/22 03:19> Social History Social History: Social History Smoking status: Never smoker Alcohol intake: never Substance use: never Gender identity (if verbalized by the patient): Male <SUSHILA Jackson Last Filed: 09/15/22 03:19> Exam Narrative: GENERAL: Well-appearing, well-nourished, and in no acute distress. HEAD: Normocephalic, atraumatic. EYES: PERRLA and EOMI. ENT: Nares clear, no rhinorrhea or epistaxis. Mucous membranes moist. Oropharynx without tonsillar hypertrophy exudate or other lesions. NECK: Torticollis present. Supple. No adenopathy or masses. CHEST: No respiratory distress. Clear to auscultation. No wheezes rales or rhonchi HEART:
[2022-09-15] MEDS: TETANUS,DIPHTHERIA,AC PERTUSSIS ADULT (0.5 ML) BOOSTRIX IM (03:24)
[2022-09-15] MEDS: CIPROFLOXACIN 250 MG TABLET PO (03:31)
[2022-09-15 08:55] VITALS: BP 145/77; PULSE 80; RESP 16; O2SAT 10
== END 2022-09-15 08:57 | disposition home or self-care (01) ==
PROVIDERS: Emergency Provider Physician Assistant
DX: S01.311A Laceration without foreign body of right ear, initial encounter (principal); Z23 Encounter for immunization; F41.9 Anxiety disorder, unspecified; F32.A Depression, unspecified; G24.01 Drug induced subacute dyskinesia; Z96.82 Presence of neurostimulator; W07.XXXA Fall from chair, initial encounter; W22.8XXA Striking against or struck by other objects, initial encounter
CPT/HCPCS: 12052; 70450; 90471; 90715; 99284; A9270